=== PATIENT | male | born 1980 | race Caucasian/White ===

== ENCOUNTER → 2020-05-01 | Outpatient (CLI) | payer OTHER ==
[~2020-05-01] MED LIST: CETIRIZINE HCL10 MG PO; COMPAZINE 10MG10 MG PO; LEVOFLOXACIN500 MG PO; ZYLOPRIM 100 M100 MG PO
== END ==
LOC: KOH-I 09:00
DX: D61.818 Other pancytopenia (principal); R16.1 Splenomegaly, not elsewhere classified; D73.4 Cyst of spleen
CPT/HCPCS: 76705

== ENCOUNTER → 2020-05-03 | Outpatient (CLI) | payer OTHER | LOC: CT 09:40 | DX: D61.818 Other pancytopenia (principal); R16.1 Splenomegaly, not elsewhere classified | CPT/HCPCS: 70491; 71260; Q9963; Q9967 ==

== ENCOUNTER → 2020-07-29 | Outpatient (CLI) | payer OTHER ==
[2020-07-29 09:52] LABS: HEMOGLOBIN 11.4 gm/dl (14.0-17.5); RED BLOOD COUNT 3.44 M/UL (4.20-5.50); WHITE BLOOD COUNT 1.7 K/UL (4.5-11.0)
== END ==
LOC: LAB 09:34
PROVIDERS: Internal Medicine
DX: C91.40 Hairy cell leukemia not having achieved remission (principal); R16.1 Splenomegaly, not elsewhere classified
CPT/HCPCS: 36415; 85025

== ENCOUNTER 2020-08-04 10:28 | Inpatient (IN) | payer OTHER ==
[~2020-08-04] VITALS: Ht 180.3 cm; Wt 82.1 kg
[2020-08-04 11:07] LABS: RED BLOOD COUNT 2.3 M/UL (4.20-5.50)
[2020-08-04 11:12] LABS: HEMOGLOBIN 7.8 gm/dl (14.0-17.5); WHITE BLOOD COUNT 0.8 K/UL (4.5-11.0)
[2020-08-04 11:50] LABS: BUN/CREATININE RATIO 20 (0-10)
[2020-08-04] MEDS ORDERED: LEVOFLOXACIN500 MG PO (15:21)
[2020-08-04] MEDS ORDERED: ZYLOPRIM 100 M100 MG PO (15:21)
[2020-08-04] MEDS ORDERED: CETIRIZINE HCL10 MG PO (15:21)
[2020-08-04] MEDS ORDERED: COMPAZINE 10MG10 MG PO (15:23)
[2020-08-05 02:21] LABS: HEMOGLOBIN 7.1 gm/dl (14.0-17.5); RED BLOOD COUNT 2.1 M/UL (4.20-5.50)
[2020-08-05 02:49] LABS: BUN/CREATININE RATIO 17 (0-10)
[2020-08-05 03:05] LABS: WHITE BLOOD COUNT 1.4 K/UL (4.5-11.0)
[2020-08-05 15:11] LABS: HEMOGLOBIN 7.6 gm/dl (14.0-17.5)
[2020-08-06 05:28] LABS: HEMOGLOBIN 8.3 gm/dl (14.0-17.5)
[2020-08-06 05:47] LABS: RED BLOOD COUNT 2.53 M/UL (4.20-5.50); WHITE BLOOD COUNT 1.1 K/UL (4.5-11.0)
[2020-08-06 06:14] LABS: BUN/CREATININE RATIO 18 (0-10)
[2020-08-07 02:30] LABS: HEMOGLOBIN 8.3 gm/dl (14.0-17.5); RED BLOOD COUNT 2.57 M/UL (4.20-5.50)
[2020-08-07 02:34] LABS: WHITE BLOOD COUNT 1.2 K/UL (4.5-11.0)
[2020-08-07 02:50] LABS: BUN/CREATININE RATIO 17 (0-10)
== END 2020-08-07 10:50 | disposition home or self-care (01) | DRG 871 ==
LOC: ER1 10:28 → CDU 13:48 → PROG CARE 19:58
PROVIDERS: Emergency Medicine; Physician Assistant Medical; ADMIT Internal Medicine
PROC: B24BZZ4 Ultrasonography of Heart with Aorta, Transesophageal (ICD-10-PCS; principal; 2020-08-05)
DX: A41.9 Sepsis, unspecified organism (principal); D61.810 Antineoplastic chemotherapy induced pancytopenia; C91.40 Hairy cell leukemia not having achieved remission; D70.9 Neutropenia, unspecified; R50.81 Fever presenting with conditions classified elsewhere; I08.1 Rheumatic disorders of both mitral and tricuspid valves; D69.6 Thrombocytopenia, unspecified; I27.20 Pulmonary hypertension, unspecified; J30.2 Other seasonal allergic rhinitis; M10.9 Gout, unspecified; D50.9 Iron deficiency anemia, unspecified; Z20.822 Contact with and (suspected) exposure to COVID-19; Z90.49 Acquired absence of other specified parts of digestive tract; Z80.9 Family history of malignant neoplasm, unspecified; Z87.442 Personal history of urinary calculi; Z82.49 Family history of ischemic heart disease and other diseases of the circulatory system; Z86.010 Personal history of colon polyps
CPT/HCPCS: ECHO; 36415; 71045; 80053; 80202; 81001; 82550; 82553; 83605; 83690; 83735; 83874; 83880; 84484; 85014; 85018; 85025; 85610; 85730; 87040; 87070; 87081; 87086; 87205; 93005; 93306; 96374; 99284; C9113; J2185; J3370; J7030; J7070; U0002

== ENCOUNTER → 2020-10-19 | Outpatient (CLI) | payer OTHER | LOC: KOH-I 10-12 09:00 → US 08:59 | DX: C91.40 Hairy cell leukemia not having achieved remission (principal); D61.818 Other pancytopenia; R16.1 Splenomegaly, not elsewhere classified | CPT/HCPCS: 76705 ==